=== PATIENT | male | born 1965 | race African-American/Black ===

== ENCOUNTER 2018-05-04 16:00 | Inpatient (IN) | payer OTHER, SELFPAY ==
[~2018-05-04 16:00] MED LIST: Calcium Chloride 1 GM/10 ML Abboject SYRINGE ONE
[2018-05-04] MEDS ORDERED: Ondansetron PF 4 MG/2 ML Vial ONE (16:03)
[2018-05-04] MEDS ORDERED: CEFAZOLIN 1 GM VIAL ONE (16:07)
[2018-05-04] MEDS ORDERED: Adacel (T-DAP) 0.5 ML VIAL ONE (16:07)
[2018-05-04] MEDS ORDERED: Succinylcholine Chloride 20 MG/ML 10 ml SYRINGE FS ONE (16:10)
[2018-05-04 16:13] LABS: #Basophils 0.1 thou/uL (0.0-0.2); #Eosinphils 0.2 thou/uL (0.0-0.7); #Lymphocytes 3.8 thou/uL (1.20-3.40); #Monocytes 0.9 thou/uL (0.11-0.59); #Neutrophils 5.6 thou/uL (1.40-6.50); %Basophils 0.7 % (0.0-1.0); %Eosinophils 1.6 % (0.0-10.0); %Lymphocytes 35.7 % (21.0-51.0); %Monocytes 8.9 % (0.0-10.0); Hemoglobin 14.8 g/dL (14.0-18.0); Mean Corpuscular HGB CONC 34.9 g/dL (32.0-36.0); Mean Corpuscular Hemoglobin 33.5 pg (27.0-31.0); Mean Corpuscular Volume 95.9 fL (78.0-98.0); Mean Platelet Volume 6.8 fL (7.4-10.4); Platelet Count 211 thou/uL (130-400); RBC Distribution Width 12.2 % (11.5-14.5); Red Blood Cell (RBC) Count 4.41 mill/uL (4.70-6.10); White Blood Cell (WBC) Count 10.6 thou/uL (4.8-10.8)
[2018-05-04] MEDS ORDERED: Fentanyl 100 MCG/2 ML VIAL ONE ×2 (16:18→16:31)
[2018-05-04] MEDS ORDERED: Midazolam HCl 2 mg/2 ml Vial ONE (16:18)
[2018-05-04] MEDS ORDERED: Vecuronium 10 MG VIAL ONE (16:21)
[2018-05-04 16:22] LABS: PTT 24.8 SEC (22.9-36.1); Prothrombin Time 12.8 SEC (12.0-14.7)
[2018-05-04] MEDS ORDERED: Heparin 10,000 UNITS/1 ML VIAL ONE (16:25)
[2018-05-04 16:28] LABS: ALT (SGPT) 15 U/L (8-55); AST (SGOT) 18 U/L (5-34); Albumin 3.5 g/dL (3.5-5.0); Alkaline Phosphatase 69 U/L (40-150); Anion Gap 12 mmol/L (10-20); BUN (Urea Nitrogen) 17 mg/dL (8.4-25.7); Bilirubin, Total 0.3 mg/dL (0.2-1.2); Calc. Creatinine Clearance 0 mL/min (70-130); Calcium 8.5 mg/dL (7.8-10.44); Carbon Dioxide 21 mmol/L (22-29); Chloride 109 mmol/L (98-107); Estimated GFR-MDRD 77; Globulin 2.8 g/dL (2.4-3.5); Glucose 119 mg/dL (70-105); Potassium 3.2 mmol/L (3.5-5.1); Protein, Total 6.3 g/dL (6.0-8.3); Sodium 139 mmol/L (136-145)
[2018-05-04] MEDS ORDERED: Norepinephrine 8 MG/0.9% NS 250 ML ONE (16:31)
[2018-05-04] MEDS ORDERED: HYDROmorphone 2 MG/ML VIAL ONE (16:31)
[2018-05-04 16:43] LABS: Bilirubin Negative (Negative); Blood, Urine Negative (Negative); Clarity CLEAR (Clear); Glucose, Urine (Dipstick) Negative (Negative); Leukocyte Negative (Negative); Nitrite Negative (Negative); Protein, Urine (Dipstick) 30 mg/dL (Neg-Trace)
[2018-05-04 16:46] LABS: Bacteria/HPF None Seen HPF (None Seen); Hyaline Casts/LPF 4-6 HYALINE CAST LPF (0-3 Hyaline); Pathc Cast-AUWi Flag 0.43 (0-2.49); RBC/HPF 0-3 HPF (0-3); Squamous Epithelial 0-3 HPF (0-3); WBC/HPF 0-3 HPF (0-3)
[2018-05-04] MEDS ORDERED: ISOVUE-370 76%-LOCM 1 ML ONE (16:53)
[2018-05-04 17:06] LABS: Cocaine Metabolite Screen Not Detected (NotDetected); Medtox Reader # READER 1; Methamphetamine Not Detected (NotDetected); Opiate Screen Not Detected (NotDetected); Phencyclidine (PCP) Not Detected (NotDetected); THC/Cannabinoid Screen Not Detected (NotDetected)
[2018-05-04 17:07] LABS: Amphetamine Not Detected (NotDetected); Barbiturates Screen Not Detected (NotDetected); Benzodiazepine Screen Not Detected (NotDetected); Medtox Control Line Valid? VALID (VALID); Methadone Not Detected (NotDetected); Oxycodone Screen Not Detected (NotDetected); Tricyclic Screen Not Detected (NotDetected)
[2018-05-04] MEDS ORDERED: Piperacillin/Tazobactam 4.5 GM in Sodium Chloride 0.9% 100 ML IVPB ONE (17:15)
[2018-05-04] MEDS ORDERED: Dextrose 50% Abboject 50 ML SYRINGE SLOW IVP PRN (17:18)
[2018-05-04] MEDS ORDERED: Dextrose 5% in Water 1,000 ML IV PRN (17:18)
[2018-05-04] MEDS ORDERED: Ondansetron ODT 4 MG TAB PO PRN (17:18)
[2018-05-04] MEDS ORDERED: Albumin 5% 500 ML ONE (17:33)
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
--- NOTE | 2018-05-04 17:58 | RAD ---
CHEST ONE VIEW: History: Central line placement. Comparison: Chest radiograph same day. FINDINGS: Patient intubated with endotracheal tube tip in good position. Central venous catheter is in good pos ition. Mild pulmonary venous congestion. Cardiomegaly. IMPRESSION: Satisfactory position of the endotracheal and central venous catheter. POS: [facility]
[2018-05-04] MEDS ORDERED: Calcium Chloride 1 GM/10 ML Abboject SYRINGE ONE (18:08)
[2018-05-04 18:29] LABS: #Basophils 0.1 thou/uL (0.0-0.2); #Eosinphils 0.1 thou/uL (0.0-0.7); #Lymphocytes 2.5 thou/uL (1.20-3.40); #Monocytes 1.4 thou/uL (0.11-0.59); #Neutrophils 15.3 thou/uL (1.40-6.50); %Basophils 0.4 % (0.0-1.0); %Eosinophils 0.6 % (0.0-10.0); %Monocytes 7.3 % (0.0-10.0); %Neutrophils 78.7 % (42.0-75.0); Hemoglobin 12.5 g/dL (14.0-18.0); Mean Corpuscular HGB CONC 32.2 g/dL (32.0-36.0); Mean Corpuscular Hemoglobin 31.3 pg (27.0-31.0); Mean Corpuscular Volume 97.5 fL (78.0-98.0); Mean Platelet Volume 6.2 fL (7.4-10.4); Platelet Count 156 thou/uL (130-400); RBC Distribution Width 12.2 % (11.5-14.5); Red Blood Cell (RBC) Count 3.98 mill/uL (4.70-6.10); White Blood Cell (WBC) Count 19.4 thou/uL (4.8-10.8)
[2018-05-04 18:36] LABS: INR-International Normal Ratio 1.1; PTT 28.7 SEC (22.9-36.1); Prothrombin Time 14.7 SEC (12.0-14.7)
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
[2018-05-04] MEDS ORDERED: Rocuronium Bromide 50 MG/5 ML VIAL ONE (19:09)
[2018-05-04] MEDS ORDERED: Ventilator Sedation Protocol 1 EACH FS SCH (19:41)
[2018-05-04 19:42] LABS: Actual Bicarbonate (HCO3a) 19.8 mEq/L (22-28); Base Excess (BEa) -7.4 mEq/L (-2.0 to +3.0); CO2 Tension 46.1 mmHg (35.0-45.0); Calcium, Ionized 1.29 mmol/L (1.12-1.30); Carboxyhemoglobin (COHb) 3.5 gm% (0.0-3.0); Hemoglobin (Hb) 13.2 g/dL (14.0-18.0); O2 Tension (PaO2) 75.4 mmHg (80.0-100.0)
[2018-05-04 19:43] LABS: pH, Arterial 7.25 (7.35-7.45)
[2018-05-04 19:44] LABS: ALV-art Gradient 152.175 (0-20); Puncture Site ALINE
[2018-05-04] MEDS ORDERED: fentaNYL Citrate/PF 2,000 MCG in Sodium Chloride 0.9% 60 ML IV SCH (19:44)
[2018-05-04] MEDS ORDERED: Morphine 2 MG/ML SYRINGE SLOW IVP PRN (19:44)
[2018-05-04] MEDS ORDERED: Propofol BOLUS 1,000 MG/100 ML VIAL IV PRN (19:44)
[2018-05-04] MEDS ORDERED: Lorazepam 2 MG/ML VIAL SLOW IVP PRN (19:44)
[2018-05-04] MEDS ORDERED: DISCONTINUE PREVIOUS NARCOTIC PAIN MEDICATIONS AND BENZODIAZEPINES FS SCH (19:44)
[2018-05-04] MEDS ORDERED: Fentanyl BOLUS 250 ML IVPB PRN (19:44)
[2018-05-04] MEDS: Propofol 1,000 MG/100 ML VIAL IV PRN (19:56)
[2018-05-04] MEDS: Lactated Ringer's 1,000 ML IV SCH (20:03)
[2018-05-04] MEDS: Acetaminophen 1,000 MG in Premix Bag 1 BAG IVPB SCH (20:23)
[2018-05-04] MEDS: Famotidine/PF 20 mg/2ml Vial SLOW IVP SCH (20:24)
[2018-05-04] MEDS: Ketorolac Tromethamine 30 MG/ML VIAL IVP SCH (20:33)
[2018-05-04 22:50] VITALS: BMI 26.2
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
[2018-05-05] MEDS ORDERED: Albumin 5% 0 ML ONE (00:26)
[2018-05-05] MEDS: Ketorolac Tromethamine 30 MG/ML VIAL IVP SCH ×4 (00:31→17:21)
[2018-05-05] MEDS: Acetaminophen 1,000 MG in Premix Bag 1 BAG IVPB SCH ×2 (00:31→05:20)
[2018-05-05] MEDS: Piperacillin/Tazobactam 4.5 GM in Sodium Chloride 0.9% 100 ML IVPB SCH ×3 (01:09→17:22)
[2018-05-05] MEDS: Propofol 1,000 MG/100 ML VIAL IV PRN (01:19)
[2018-05-05 01:44] LABS: #Lymphocytes 0.7 thou/uL (1.20-3.40); #Monocytes 0.9 thou/uL (0.11-0.59); #Neutrophils 11.3 thou/uL (1.40-6.50); %Basophils 0.2 % (0.0-1.0); %Eosinophils 0.1 % (0.0-10.0); %Lymphocytes 5.7 % (21.0-51.0); %Neutrophils 87.1 % (42.0-75.0); Hemoglobin 11.5 g/dL (14.0-18.0); Mean Corpuscular HGB CONC 32.9 g/dL (32.0-36.0); Mean Corpuscular Hemoglobin 31.8 pg (27.0-31.0); Mean Corpuscular Volume 96.8 fL (78.0-98.0); Mean Platelet Volume 7.1 fL (7.4-10.4); Platelet Count 135 thou/uL (130-400); RBC Distribution Width 12.4 % (11.5-14.5); Red Blood Cell (RBC) Count 3.62 mill/uL (4.70-6.10)
[2018-05-05] MEDS: Lactated Ringer's 1,000 ML IV SCH ×3 (01:59→17:21)
[2018-05-05] MEDS ORDERED: Lactated Ringer's 500 ML IV SCH (02:00)
[2018-05-05] MEDS ORDERED: Hydrocortisone Sod Succ/PF 100 mg/2 ml Vial IVP SCH (02:00)
[2018-05-05 02:14] LABS: Anion Gap 11 mmol/L (10-20); BUN (Urea Nitrogen) 15 mg/dL (8.4-25.7); Calc. Creatinine Clearance 104 mL/min (70-130); Calcium 8.8 mg/dL (7.8-10.44); Carbon Dioxide 21 mmol/L (22-29); Chloride 111 mmol/L (98-107); Estimated GFR-MDRD 90; Glucose 98 mg/dL (70-105); Magnesium 1.5 mg/dL (1.6-2.6); Phosphorus 3.1 mg/dL (2.3-4.7); Potassium 4.1 mmol/L (3.5-5.1); Sodium 139 mmol/L (136-145)
[2018-05-05] MEDS ORDERED: Sodium Chloride 0.9% 1,000 ML IV SCH (03:00)
[2018-05-05] MEDS ORDERED: Magnesium 2 GM/50 ML 2 GM in Premix Bag 1 BAG IVPB SCH (03:00)
[2018-05-05 04:05] LABS: Actual Bicarbonate (HCO3a) 20.6 mEq/L (22-28); Base Excess (BEa) -3.7 mEq/L (-2.0 to +3.0); CO2 Tension 34.6 mmHg (35.0-45.0); Calcium, Ionized 1.13 mmol/L (1.12-1.30); Carboxyhemoglobin (COHb) 1.3 gm% (0.0-3.0); Hemoglobin (Hb) 10.9 g/dL (14.0-18.0); O2 Tension (PaO2) 87.6 mmHg (80.0-100.0); pH, Arterial 7.39 (7.35-7.45)
[2018-05-05] MEDS ORDERED: Calcium Chloride 1 GM/10 ML Abboject SYRINGE ONE (04:05)
[2018-05-05 04:07] LABS: Puncture Site LINE
[2018-05-05] MEDS ORDERED: Calcium Chloride 1 GM/10 ML Abboject SYRINGE IVP SCH (04:15)
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
[2018-05-05] MEDS ORDERED: Naloxone HCl 0.4 mg/ml Vial IV PRN (08:03)
[2018-05-05] MEDS ORDERED: diphenhydrAMINE 50 MG/ML VIAL IM PRN (08:03)
[2018-05-05] MEDS ORDERED: Promethazine HCl 25 MG/ML VIAL IM PRN (08:03)
[2018-05-05] MEDS ORDERED: Communication Order-Pharmacy FS PRN (08:15)
[2018-05-05] MEDS ORDERED: Prevnar 13-Val Conj/PF 0.5 ML SYRINGE IM ONE (09:00)
[2018-05-05] MEDS: Famotidine/PF 20 mg/2ml Vial SLOW IVP SCH ×2 (09:23→20:37)
[2018-05-05] MEDS: HYDROmorphone 10 mg/100 ml CADD IVPB PRN (10:35)
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
[2018-05-06] MEDS: Ketorolac Tromethamine 30 MG/ML VIAL IVP SCH ×5 (00:30→23:18)
[2018-05-06] MEDS: Lactated Ringer's 1,000 ML IV SCH ×4 (00:31→17:08)
[2018-05-06] MEDS: Piperacillin/Tazobactam 4.5 GM in Sodium Chloride 0.9% 100 ML IVPB SCH ×3 (01:39→17:08)
[2018-05-06] MEDS: diphenhydrAMINE 25 MG CAP PO PRN (03:39)
[2018-05-06 04:18] LABS: #Basophils 0.1 thou/uL (0.0-0.2); #Eosinphils 0.2 thou/uL (0.0-0.7); #Lymphocytes 1.6 thou/uL (1.20-3.40); #Monocytes 0.9 thou/uL (0.11-0.59); %Basophils 0.5 % (0.0-1.0); %Eosinophils 1.1 % (0.0-10.0); %Lymphocytes 9.6 % (21.0-51.0); %Monocytes 5.4 % (0.0-10.0); %Neutrophils 83.5 % (42.0-75.0); Hemoglobin 10.3 g/dL (14.0-18.0); Mean Corpuscular HGB CONC 32.8 g/dL (32.0-36.0); Mean Corpuscular Hemoglobin 31.8 pg (27.0-31.0); Mean Corpuscular Volume 96.8 fL (78.0-98.0); Mean Platelet Volume 7.3 fL (7.4-10.4); Platelet Count 125 thou/uL (130-400); RBC Distribution Width 12.3 % (11.5-14.5); Red Blood Cell (RBC) Count 3.23 mill/uL (4.70-6.10); White Blood Cell (WBC) Count 16.8 thou/uL (4.8-10.8)
[2018-05-06 04:31] LABS: ALT (SGPT) 26 U/L (8-55); AST (SGOT) 36 U/L (5-34); Alkaline Phosphatase 50 U/L (40-150); Anion Gap 9 mmol/L (10-20); BUN (Urea Nitrogen) 15 mg/dL (8.4-25.7); Bilirubin, Total 1.1 mg/dL (0.2-1.2); Calc. Creatinine Clearance 88 mL/min (70-130); Calcium 8.4 mg/dL (7.8-10.44); Carbon Dioxide 25 mmol/L (22-29); Chloride 108 mmol/L (98-107); Estimated GFR-MDRD 75; Globulin 2.2 g/dL (2.4-3.5); Glucose 102 mg/dL (70-105); Lipase 9 U/L (8-78); Magnesium 1.7 mg/dL (1.6-2.6); Phosphorus 2.2 mg/dL (2.3-4.7); Potassium 3.7 mmol/L (3.5-5.1); Protein, Total 5.2 g/dL (6.0-8.3); Sodium 138 mmol/L (136-145)
[2018-05-06] MEDS: diphenhydrAMINE 50 MG/ML VIAL IVP PRN ×2 (05:12→23:29)
[2018-05-06] MEDS ORDERED: Potassium Phosphate 30 MMOL, Magnesium Sulfate 2 GM in Sodium Chloride 0.9% 250 ML 250 ML IVPB SCH (07:00)
[2018-05-06] MEDS ORDERED: Magnesium 2 GM/50 ML 2 GM in Premix Bag 1 BAG IVPB SCH (07:00)
[2018-05-06] MEDS: Famotidine/PF 20 mg/2ml Vial SLOW IVP SCH ×2 (09:27→20:20)
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
[2018-05-06 14:33] LABS: Actual Bicarbonate (HCO3a) 20.4 mEq/L (22-28); Analyzer IN Cardio OR; Base Excess (BEa) -6.4 mEq/L (-2.0 to +3.0); CO2 Tension 45.2 mmHg (35.0-45.0); Carboxyhemoglobin (COHb) 3.9 gm% (0.0-3.0); Hemoglobin (Hb) 13.2 g/dL (14.0-18.0); O2 Tension (PaO2) 111.2 mmHg (80.0-100.0); Potassium - ABG Lab 3.44 mmol/L (3.70-5.30); pH, Arterial 7.27 (7.35-7.45)
[2018-05-06 14:34] LABS: Actual Bicarbonate (HCO3v) 22 mEq/L (22-28); Analyzer IN Cardio OR; Base Excess -4.7 mEq/L (-2.0 to +3.0); Calcium, Ionized 1.05 mmol/L (1.16-1.32); Chloride (ABG LAB) 108 mmol/L (98-106); Hemoglobin (Hb) 13.3 g/dL (13.1-17.2); Potassium - ABG Lab 3.62 mmol/L (3.70-5.30); Sodium 140.5 mmol/L (133-146)
[2018-05-06 14:34] LABS: Actual Bicarbonate (HCO3v) 22 mEq/L (22-28); Analyzer IN Cardio OR; Base Excess -3.9 mEq/L (-2.0 to +3.0); Calcium, Ionized 1.08 mmol/L (1.16-1.32); Chloride (ABG LAB) 110 mmol/L (98-106); Hemoglobin (Hb) 13.4 g/dL (13.1-17.2); Potassium - ABG Lab 3.66 mmol/L (3.70-5.30); Sodium 137.9 mmol/L (133-146); pH (venous) 7.33 (7.32-7.43)
[2018-05-06 14:56] LABS: Puncture Site ALINE
[2018-05-06] MEDS: HYDROmorphone 10 mg/100 ml CADD IVPB PRN (21:28)
[2018-05-07] MEDS: Piperacillin/Tazobactam 4.5 GM in Sodium Chloride 0.9% 100 ML IVPB SCH ×3 (01:56→17:07)
[2018-05-07] MEDS: Lactated Ringer's 1,000 ML IV SCH ×2 (04:16→14:32)
[2018-05-07 04:36] LABS: #Eosinphils 0.3 thou/uL (0.0-0.7); #Lymphocytes 1.2 thou/uL (1.20-3.40); #Monocytes 0.8 thou/uL (0.11-0.59); #Neutrophils 11.9 thou/uL (1.40-6.50); %Basophils 0.3 % (0.0-1.0); %Eosinophils 2.3 % (0.0-10.0); %Lymphocytes 8.3 % (21.0-51.0); %Monocytes 5.5 % (0.0-10.0); %Neutrophils 83.6 % (42.0-75.0); Hemoglobin 10.2 g/dL (14.0-18.0); Mean Corpuscular HGB CONC 32.3 g/dL (32.0-36.0); Mean Corpuscular Hemoglobin 31.3 pg (27.0-31.0); Mean Platelet Volume 7.7 fL (7.4-10.4); Platelet Count 142 thou/uL (130-400); RBC Distribution Width 12.2 % (11.5-14.5); Red Blood Cell (RBC) Count 3.27 mill/uL (4.70-6.10); White Blood Cell (WBC) Count 14.3 thou/uL (4.8-10.8)
[2018-05-07] MEDS: Ketorolac Tromethamine 30 MG/ML VIAL IVP SCH ×4 (05:16→23:22)
[2018-05-07 05:19] LABS: Anion Gap 10 mmol/L (10-20); BUN (Urea Nitrogen) 18 mg/dL (8.4-25.7); Calc. Creatinine Clearance 84 mL/min (70-130); Calcium 8.4 mg/dL (7.8-10.44); Carbon Dioxide 25 mmol/L (22-29); Chloride 107 mmol/L (98-107); Estimated GFR-MDRD 71; Glucose 89 mg/dL (70-105); Magnesium 2.1 mg/dL (1.6-2.6); Phosphorus 2.7 mg/dL (2.3-4.7); Potassium 3.8 mmol/L (3.5-5.1); Sodium 138 mmol/L (136-145)
[2018-05-07] MEDS: Famotidine/PF 20 mg/2ml Vial SLOW IVP SCH ×2 (08:31→20:00)
[2018-05-07] MEDS ORDERED: Fentanyl 100 MCG/2 ML VIAL ONE ×2 (10:44→13:42)
[2018-05-07] MEDS ORDERED: Promethazine HCl 25 MG/ML VIAL IM PRN (13:27)
[2018-05-07] MEDS ORDERED: HYDROmorphone 2 MG/ML VIAL SLOW IVP PRN (13:27)
[2018-05-07] MEDS ORDERED: Ondansetron HCl/PF 4 MG/2 ML Vial IVP PRN (13:27)
[2018-05-07] MEDS ORDERED: Promethazine HCl 25 MG/ML VIAL SLOW IVP PRN (13:27)
[2018-05-07] MEDS ORDERED: HYDROmorphone 2 MG/ML VIAL ONE (13:29)
[2018-05-07 13:37] LABS: Actual Bicarbonate (HCO3a) 22.1 mEq/L (22-28); Analyzer IN Cardio OR; Base Excess (BEa) -4.3 mEq/L (-2.0 to +3.0); CO2 Tension 45.7 mmHg (35.0-45.0); Calcium, Ionized 1.05 mmol/L (1.12-1.30); Carboxyhemoglobin (COHb) 4.7 gm% (0.0-3.0); Hemoglobin (Hb) 13.2 g/dL (14.0-18.0)
[2018-05-07 13:39] LABS: O2 Tension (PaO2) 42.7 mmHg (80.0-100.0)
[2018-05-07 13:40] LABS: Puncture Site ALINE
[2018-05-07] MEDS ORDERED: HYDROmorphone 10 mg/100 ml CADD IVPB PRN (14:31)
[2018-05-07] MEDS: Acetaminophen 500 MG TAB PO SCH ×2 (14:41→20:01)
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
[2018-05-07] MEDS ORDERED: PROPOFOL 200 MG/20 ML VIAL ONE (17:00)
[2018-05-07] MEDS ORDERED: Succinylcholine Chloride 200 MG/10 ML VIAL ONE (17:00)
[2018-05-07] MEDS ORDERED: Glycopyrrolate 0.2 MG/ML 5 ML SYRINGE ONE (17:00)
[2018-05-07] MEDS ORDERED: Ondansetron PF 4 MG/2 ML Vial ONE (17:00)
[2018-05-07] MEDS: diphenhydrAMINE 50 MG/ML VIAL IVP PRN (17:13)
[2018-05-07] MEDS: diphenhydrAMINE 25 MG CAP PO PRN (22:52)
[2018-05-08] MEDS: Piperacillin/Tazobactam 4.5 GM in Sodium Chloride 0.9% 100 ML IVPB SCH ×2 (02:42→09:02)
[2018-05-08] MEDS: Acetaminophen 500 MG TAB PO SCH ×4 (02:42→21:12)
[2018-05-08] MEDS: Lactated Ringer's 1,000 ML IV SCH ×3 (02:48→21:24)
[2018-05-08] MEDS: Ketorolac Tromethamine 30 MG/ML VIAL IVP SCH ×2 (05:42→12:36)
[2018-05-08] MEDS: Famotidine/PF 20 mg/2ml Vial SLOW IVP SCH (08:59)
[2018-05-08] MEDS: Senokot 8.6 MG TAB PO SCH ×2 (09:00→21:12)
[2018-05-08] MEDS: Polyethylene Glycol 3350 17 GM Packet PO SCH (09:00)
[2018-05-08] MEDS: Ascorbic Acid 500 mg Chewable Tablet PO SCH ×2 (09:00→21:12)
[2018-05-08] MEDS: Enoxaparin Sodium 40 MG/0.4 ML SYRINGE SC SCH (09:01)
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
[2018-05-08] MEDS: Ibuprofen 600 MG TAB PO PRN (15:51)
[2018-05-08] MEDS: traMADol HCl 50 MG TAB PO SCH ×2 (16:45→23:19)
[2018-05-08] MEDS: Ondansetron PF 4 MG/2 ML Vial IVP PRN (17:21)
[2018-05-08] MEDS: Morphine 4 MG/ML VIAL SLOW IVP PRN (21:20)
[2018-05-09] MEDS: Acetaminophen 500 MG TAB PO SCH ×4 (02:48→20:10)
[2018-05-09] MEDS: Morphine 4 MG/ML VIAL SLOW IVP PRN ×5 (03:53→20:11)
[2018-05-09] MEDS: Lactated Ringer's 1,000 ML IV SCH ×2 (03:58→14:09)
[2018-05-09] MEDS: traMADol HCl 50 MG TAB PO SCH ×4 (05:38→22:27)
[2018-05-09 05:42] LABS: Band 4 % (5-11); Eosinophils 2 % (0-10); Lymphocytes 13 % (21-51); MDiff Complete? YES; Mean Corpuscular HGB CONC 32.7 g/dL (32.0-36.0); Mean Corpuscular Hemoglobin 31.9 pg (27.0-31.0); Mean Corpuscular Volume 97.6 fL (78.0-98.0); Mean Platelet Volume 6.8 fL (7.4-10.4); Monocytes 2 % (0-10); Neutrophil 79 % (42-75); PLT Morphology Comment Appears Adequate; Platelet Count 204 thou/uL (130-400); RBC Distribution Width 12.1 % (11.5-14.5); Red Blood Cell (RBC) Count 3.12 mill/uL (4.70-6.10); White Blood Cell (WBC) Count 10.3 thou/uL (4.8-10.8)
[2018-05-09 05:44] LABS: Anion Gap 11 mmol/L (10-20); BUN (Urea Nitrogen) 12 mg/dL (8.4-25.7); Calc. Creatinine Clearance 113 mL/min (70-130); Calcium 8.5 mg/dL (7.8-10.44); Carbon Dioxide 24 mmol/L (22-29); Chloride 106 mmol/L (98-107); Estimated GFR-MDRD Greater than 90; Glucose 97 mg/dL (70-105); Sodium 137 mmol/L (136-145)
[2018-05-09] MEDS: Ascorbic Acid 500 mg Chewable Tablet PO SCH ×3 (08:03→20:11)
[2018-05-09] MEDS: Senokot 8.6 MG TAB PO SCH ×2 (08:03→20:10)
[2018-05-09] MEDS: Enoxaparin Sodium 40 MG/0.4 ML SYRINGE SC SCH (08:03)
[2018-05-09] MEDS: Ondansetron PF 4 MG/2 ML Vial IVP PRN (08:18)
[2018-05-09] MEDS: Polyethylene Glycol 3350 17 GM Packet PO SCH (09:15)
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
[2018-05-09] MEDS: traMADol HCl 50 MG TAB PO PRN ×2 (14:47→23:36)
[2018-05-10] MEDS: Morphine 4 MG/ML VIAL SLOW IVP PRN ×3 (01:03→10:33)
[2018-05-10] MEDS: Acetaminophen 500 MG TAB PO SCH ×4 (03:15→20:41)
[2018-05-10] MEDS: traMADol HCl 50 MG TAB PO SCH ×4 (04:57→22:37)
[2018-05-10] MEDS: traMADol HCl 50 MG TAB PO PRN (06:35)
[2018-05-10] MEDS: Ibuprofen 600 MG TAB PO PRN (06:35)
[2018-05-10] MEDS: Senokot 8.6 MG TAB PO SCH ×2 (08:12→20:40)
[2018-05-10] MEDS: Enoxaparin Sodium 40 MG/0.4 ML SYRINGE SC SCH (08:12)
[2018-05-10] MEDS: Ascorbic Acid 500 mg Chewable Tablet PO SCH ×2 (08:12→20:41)
[2018-05-10] MEDS: Lactated Ringer's 1,000 ML IV SCH ×2 (08:18→18:26)
[2018-05-10] MEDS: Polyethylene Glycol 3350 17 GM Packet PO SCH (08:25)
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
[2018-05-11] MEDS: Lactated Ringer's 1,000 ML IV SCH ×2 (00:58→09:20)
[2018-05-11] MEDS: Acetaminophen 500 MG TAB PO SCH ×6 (02:48→23:04)
[2018-05-11] MEDS: Ibuprofen 600 MG TAB PO PRN ×2 (02:48→20:31)
[2018-05-11] MEDS: traMADol HCl 50 MG TAB PO SCH ×4 (04:41→23:04)
[2018-05-11] MEDS ORDERED: Clopidogrel Bisulfate 75 MG TAB ONE (05:09)
[2018-05-11] MEDS: Ascorbic Acid 500 mg Chewable Tablet PO SCH ×2 (09:19→20:34)
[2018-05-11] MEDS: Senokot 8.6 MG TAB PO SCH ×2 (09:20→20:35)
[2018-05-11] MEDS: Polyethylene Glycol 3350 17 GM Packet PO SCH (09:20)
[2018-05-11] MEDS: Enoxaparin Sodium 40 MG/0.4 ML SYRINGE SC SCH (09:20)
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
[2018-05-12] MEDS: traMADol HCl 50 MG TAB PO SCH ×2 (05:38→11:40)
[2018-05-12] MEDS: Acetaminophen 500 MG TAB PO SCH ×2 (05:38→11:40)
[2018-05-12] MEDS: Senokot 8.6 MG TAB PO SCH (08:35)
[2018-05-12] MEDS: Polyethylene Glycol 3350 17 GM Packet PO SCH (08:35)
[2018-05-12] MEDS: Enoxaparin Sodium 40 MG/0.4 ML SYRINGE SC SCH (08:46)
[2018-05-12] MEDS: Ascorbic Acid 500 mg Chewable Tablet PO SCH (08:46)
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
[2018-05-12 11:29] VITALS: BP 123/85; TEMP 98.1
[2018-05-12] MEDS ORDERED: Ferrous Sulfate 325 MG TAB PO SCH (17:00)
== END 2018-05-12 11:55 | disposition home or self-care (01) | DRG 326 ==
LOC: ERS 16:00 → CCU 16:40 → SDC 16:43 → CCU 17:18 → EEVIPCON 17:18 → CCU 05-07 06:49 → SURG B 05-07 18:49
PROVIDERS: ADMIT Surgery; ATTEND Surgery
PROC: 0DQ60ZZ Repair Stomach, Open Approach (ICD-10-PCS; principal; 2018-05-04)
PROC: 0DQ80ZZ Repair Small Intestine, Open Approach (ICD-10-PCS; 2018-05-04)
PROC: 0DQL0ZZ Repair Transverse Colon, Open Approach (ICD-10-PCS; 2018-05-04)
PROC: 0BH17EZ Insertion of Endotracheal Airway into Trachea, Via Natural or Artificial Opening (ICD-10-PCS; 2018-05-04)
PROC: 5A1945Z Respiratory Ventilation, 24-96 Consecutive Hours (ICD-10-PCS; 2018-05-04)
PROC: 0W3G0ZZ Control Bleeding in Peritoneal Cavity, Open Approach (ICD-10-PCS; 2018-05-04)
PROC: 30233K1 Transfusion of Nonautologous Frozen Plasma into Peripheral Vein, Percutaneous Approach (ICD-10-PCS; 2018-05-04)
PROC: 05H633Z Insertion of Infusion Device into Left Subclavian Vein, Percutaneous Approach (ICD-10-PCS; 2018-05-04)
PROC: 0W9G00Z Drainage of Peritoneal Cavity with Drainage Device, Open Approach (ICD-10-PCS; 2018-05-07)
PROC: 0D9670Z Drainage of Stomach with Drainage Device, Via Natural or Artificial Opening (ICD-10-PCS; 2018-05-08)
DX: S31.609A Unspecified open wound of abdominal wall, unspecified quadrant with penetration into peritoneal cavity, initial encounter (principal); K65.9 Peritonitis, unspecified; R57.8 Other shock; E87.2 Acidosis; D62 Acute posthemorrhagic anemia; K56.0 Paralytic ileus; W34.00XA Accidental discharge from unspecified firearms or gun, initial encounter; Y92.9 Unspecified place or not applicable; F17.210 Nicotine dependence, cigarettes, uncomplicated; E87.6 Hypokalemia; E83.39 Other disorders of phosphorus metabolism; E83.42 Hypomagnesemia
CPT/HCPCS: 31500; 36415; 36416; 36430; 36556; 71045; 71260; 74018; 74019; 74177; 80048; 80053; 80306; 81003; 81015; 82150; 82533; 82805; 83690; 83735; 84100; 85007; 85025; 85027; 85384; 85610; 85730; 86850; 86900; 86901; 90471; 90670; 90715; 94003; 96374; 96375; G0009; G0390; J0131; J0330; J0690; J1170; J1200; J1644; J1650; J1720; J1885; J2250; J2270; J2405; J2543; J2704; J3010; J3475; J7050; P9012; P9045; P9059; Q0162; S0028

== ENCOUNTER 2025-06-10 15:35 | Observation (INO) | payer OTHER, SELFPAY ==
[~2025-06-10 15:35] MED LIST changes: -Calcium Chloride 1 GM/10 ML Abboject SYRINGE ONE; +Iopamidol-370 76% 500 ML MDV (1 ML CHARGE) ONE
[2025-06-10] MEDS ORDERED: Ondansetron PF 4 MG/2 ML Vial ONE (15:51)
[2025-06-10 16:03] LABS: #Basophils Less than 0.03 10x3/uL (0.0-0.2); #Eosinophils Less than 0.03 10x3/uL (0.0-0.7); #Monocytes 0.07 10x3/uL (0.11-0.59); #Neutrophils 7.80 10x3/uL (1.40-6.50); %Basophils 0.2 % (0.0-1.0); %Eosinophils 0.0 % (0.0-10.0); %Lymphocytes 8.7 % (21.0-51.0); %Monocytes 0.8 % (0.0-10.0); %Neutrophils 89.5 % (42.0-75.0); Hematocrit 41.6 % (42.0-52.0); Hemoglobin 13.7 g/dL (14.0-18.0); Mean Corpuscular Hemoglobin 30.1 pg (27.0-31.0); Mean Corpuscular Volume 91.4 fL (78.0-98.0); Platelet Count 181 10x3/uL (130-400); Red Blood Cell (RBC) Count 4.55 mill/uL (4.70-6.10); White Blood Cell (WBC) Count 8.72 10x3/uL (4.8-10.8)
[2025-06-10 16:19] LABS: ALT (SGPT) 17 U/L (Less than 45); AST (SGOT) 21 U/L (11-34); Albumin 3.6 g/dL (3.1-4.5); Alkaline Phosphatase 70 U/L (40-110); Anion Gap 18 mmol/L (10-20); BUN (Urea Nitrogen) 18 mg/dL (8.4-25.7); Bilirubin, Total 0.3 mg/dL (0.3-1.2); Calc. Creatinine Clearance 0 mL/min (70-130); Calcium 8.9 mg/dL (7.8-10.44); Carbon Dioxide 18 mmol/L (23-31); Chloride 108 mmol/L (98-107); Globulin 3.1 g/dL (2.4-3.5); Glucose 194 mg/dL (80-115); Lipase 22 U/L (8-78); Potassium 4.3 mmol/L (3.5-5.1); Sodium 140 mmol/L (136-145)
[2025-06-10] MEDS ORDERED: Ondansetron PF 4 MG/2 ML Vial IVP PRN (20:17)
[2025-06-10] MEDS ORDERED: Melatonin 3 MG TAB PO PRN (20:17)
[2025-06-10] MEDS ORDERED: Acetaminophen 325 MG TAB PO PRN (20:17)
[2025-06-10] MEDS ORDERED: Nitroglycerin 0.4 MG TAB (25 Tab Bottle) SL PRN (20:17)
[2025-06-10] MEDS ORDERED: PHOS-NAK 1 PKT PACK PO PRN (21:00)
[2025-06-10] MEDS ORDERED: Magnesium Sulfate In Water 4 GM in Premix 1 BAG IVPB PRN (21:00)
[2025-06-10] MEDS ORDERED: Potassium Chloride 20 MEQ in Premix 1 BAG IVPB PRN (21:00)
[2025-06-10] MEDS ORDERED: Electrolyte Replacement Protocol 1 EACH FS SCH (21:00)
[2025-06-10 22:04] VITALS: BMI 24.4
[2025-06-10] MEDS: Famotidine 20 MG TAB PO SCH (22:24)
[2025-06-10] MEDS: Enoxaparin 100 MG (1 mL) SYRINGE SC SCH (22:25)
[2025-06-10] MEDS: Communication Order-Pharmacy FS ONE (22:54)
[2025-06-10 23:04] LABS: Magnesium 1.6 mg/dL (1.6-2.6)
[2025-06-11 04:54] LABS: #Basophils Less than 0.03 10x3/uL (0.0-0.2); #Eosinophils Less than 0.03 10x3/uL (0.0-0.7); #Monocytes 0.94 10x3/uL (0.11-0.59); #Neutrophils 12.97 10x3/uL (1.40-6.50); %Basophils 0.1 % (0.0-1.0); %Eosinophils 0.0 % (0.0-10.0); %Lymphocytes 9.6 % (21.0-51.0); %Monocytes 6.1 % (0.0-10.0); %Neutrophils 83.5 % (42.0-75.0); Hematocrit 41.1 % (42.0-52.0); Hemoglobin 13.4 g/dL (14.0-18.0); Mean Corpuscular Hemoglobin 30.5 pg (27.0-31.0); Mean Corpuscular Volume 93.6 fL (78.0-98.0); Platelet Count 197 10x3/uL (130-400); Red Blood Cell (RBC) Count 4.39 mill/uL (4.70-6.10); White Blood Cell (WBC) Count 15.53 10x3/uL (4.8-10.8)
[2025-06-11 05:09] LABS: Anion Gap 11 mmol/L (10-20); BUN (Urea Nitrogen) 18 mg/dL (8.4-25.7); Calc. Creatinine Clearance 105 mL/min (70-130); Calcium 8.6 mg/dL (7.8-10.44); Carbon Dioxide 21 mmol/L (23-31); Cardiac Risk 4.3 (Less than 4.5); Chloride 111 mmol/L (98-107); Cholesterol 243 mg/dl (< 200 Desired); Glucose 156 mg/dL (80-115); HDL Cholesterol 57 mg/dL (>60 Neg Risk); LDL Cholesterol, Calculated 150 mg/dL; Potassium 4.0 mmol/L (3.5-5.1); Sodium 139 mmol/L (136-145); Triglycerides 178 mg/dL (Less than 150)
[2025-06-11 08:39] VITALS: BP 113/66; TEMP 97.7
[2025-06-11] MEDS: Enoxaparin 100 MG (1 mL) SYRINGE SC SCH (09:24)
[2025-06-11] MEDS: Aspirin Chewable 81 MG TAB PO SCH (09:25)
== END 2025-06-11 12:15 | disposition home or self-care (01) ==
LOC: ERS 15:35 → 2NO 20:18 → INTOOBSV 20:18
PROVIDERS: ADMIT Internal Medicine; ATTEND Internal Medicine
DX: I21.4 Non-ST elevation (NSTEMI) myocardial infarction (principal); I25.10 Atherosclerotic heart disease of native coronary artery without angina pectoris; C90.00 Multiple myeloma not having achieved remission; E78.5 Hyperlipidemia, unspecified; Z95.5 Presence of coronary angioplasty implant and graft; Z79.82 Long term (current) use of aspirin; Z79.02 Long term (current) use of antithrombotics/antiplatelets
CPT/HCPCS: 36415; 71275; 80048; 80053; 80061; 83036; 83690; 83735; 83880; 84443; 84484; 85025; 93005; 94760; 96365; 96366; 96374; 96375; G0378; J1650; J2270; J2405; Q9967